=== PATIENT | female | born 2000 | race Caucasian/White ===

== ENCOUNTER 2023-04-08 16:36 | Emergency (ER) | payer OTHER ==
[~2023-04-08] VITALS: Ht 152.4 cm; Wt 59.0 kg
[2023-04-08 16:45] VITALS: BP_SYST 135; PULSE 86; RESP 18; TEMP 97.8; O2SAT 100
[2023-04-08] MEDS ORDERED: ONDANSETRON HCL 4 MG/2 ML VIAL IVP ONE (17:15)
[2023-04-08 17:32] LABS: BILIRUBIN,URINE NEGATIVE (NEGATIVE); CLARITY/URINE CLEAR (CLEAR); COLOR,URINE YELLOW (YELLOW); GLUCOSE,URINE NEGATIVE (NEGATIVE); KETONES,URINE NEGATIVE (NEGATIVE); LEUKOCYTE ESTERASE ,URINE NEGATIVE (NEGATIVE); NITRITE, URINE NEGATIVE (NEGATIVE); PROTEIN URINE NEGATIVE (NEGATIVE); UROBILINOGEN,URINE 0.2 (0.2-1.0)
[2023-04-08 17:42] LABS: BASOPHILS # (AUTO) 0.1 K/uL (0.0-0.2); BASOPHILS % (AUTO) 0.5 % (0.0-2.0); EOSINOPHILS # (AUTO) 0.1 K/uL (0.0-0.4); EOSINOPHILS % (AUTO) 0.7 % (0.0-4.0); HEMOGLOBIN 13.9 g/dL (12.0-16.0); LYMPHOCYTES # (AUTO) 2.6 K/uL (1.0-5.5); LYMPHOCYTES % (AUTO) 24.7 % (20.5-51.5); MEAN CORPUSCULAR HEMOGLOBIN 30 pg (27-31); MEAN CORPUSCULAR HGB CONC 33 % (32-36); MEAN CORPUSCULAR VOLUME 91 fL (79.0-98.0); MONOCYTES # (AUTO) 0.6 K/uL (0.0-1.0); MONOCYTES % (AUTO) 5.8 % (1.7-9.3); NEUTROPHILS # (AUTO) 7.1 K/uL (1.8-7.7); NEUTROPHILS % (AUTO) 68.3 % (40.0-70.0); PLATELET COUNT (AUTO) 277 K/uL (130-430); RED BLOOD CELL COUNT(AUTO) 4.64 MIL/uL (4.2-6.2); RED CELL DISTRIBUTION WIDTH 12.4 % (9.0-15.0); WHITE BLOOD COUNT (AUTO) 10.5 K/uL (4.8-10.8)
[2023-04-08 17:58] LABS: CALCIUM 9.1 mg/dL (8.4-11.0); CREATININE 0.64 mg/dL (0.55-1.30); POTASSIUM 3.5 mmol/L (3.5-5.1)
[2023-04-08 18:11] LABS: ALBUMIN 3.5 g/dL (3.4-4.8); TOTAL BILIRUBIN 0.3 mg/dL (0.0-1.0); TOTAL PROTEIN, SERUM 7.2 g/dL (6.4-8.3)
[2023-04-08 18:14] LABS: BLOOD, URINE TRACE (NEGATIVE)
[2023-04-08 18:19] LABS: BACTERIA,URINE FEW /HPF (None Seen); MUCUS,URINE None Seen /LPF (None Seen); RBC,URINE 0-3 /HPF (0-3); WBC,URINE 0-3 /HPF (0-3)
[2023-04-08] MEDS ORDERED: KETOROLAC TROMETHAMINE 30 MG VIAL IM ONE (19:30)
[2023-04-08 20:48] VITALS: BP_SYST 135; PULSE 83; RESP 18; TEMP 97.8; O2SAT 96
== END 2023-04-08 20:40 | disposition home or self-care (01) ==
LOC: SED 16:36
DX: R10.32 Left lower quadrant pain (principal); Z79.899 Other long term (current) drug therapy
CPT/HCPCS: 99285; 74176; 80053; 81001; 84702; 85025; 36415; 76376; 81025; 96372; 81000; 81015; J1885